=== PATIENT | female | born 1985 | race Caucasian/White ===

== ENCOUNTER 2024-04-20 14:34 | Emergency (ER) | payer MEDICARE, SELFPAY ==
[2024-04-20] VITALS (8 sets, daily range): BP systolic 110–151; BP diastolic 66–126; PULSE 58–76; RESP 18–20; TEMP 36; O2SAT 93–100; BMI 24.3
--- NOTE | 2024-04-20 15:29 | ED_ITS ---
HPI - General Adult General Chief complaint: Back Injury/Pain Stated complaint: mirella parklos syndrome - Time Seen by Provider: 04/20/24 15:12 History of Present Illness HPI narrative: This 38-year-old female comes in reporting nausea with vomiting and severe back pain. 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 She feels like she is having a flare-up. She lives in [place] and drove up here for a . She thinks that the long car ride it made her back pain worse. She appears to be miserable but does arrive with reassuring vital signs. Related Data Home Medications ?Medication ?Instructions ?Recorded ?Confirmed Ambien 04/20/24 Benadryl 04/20/24 Epi E-Z Pen 04/20/24 Zofran 04/20/24 acyclovir 04/20/24 cetirizine 04/20/24 cromolyn 04/20/24 famotidine 04/20/24 hydroxychloroquine 04/20/24 hydroxyzine HCl 04/20/24 lorazepam 04/20/24 oxycodone 04/20/24 propranolol 04/20/24 Allergies Allergy/AdvReac Type Severity Reaction Status Date / Time ibuprofen Allergy Intermediate Verified 04/20/24 14:54 Review of Systems Status of ROS: Reports: 10 or more systems reviewed and unremarkable except as noted in History and below Narrative: Constitutional: No fevers, no weight gain or loss. Eyes: No discharge. No vision changes. HENT: No congestion, no sore throat, no ear pain. Cardiovascular: No chest pain, no palpitations. Respiratory: No shortness of breath, no wheezes, no cough. Gastrointestinal: No abdominal pain, no vomiting, no diarrhea. Genitourinary: No dysuria, no hematuria. Musculoskeletal: She reports Tacos Danlos syndrome and has chronic pain. Skin: No rashes, no pruritis. Neurological: No dizziness, weakness, sensory change, speech change. Endo/Heme/Allergies: No bruising or bleeding. No polydipsia. Pysch: no suicidality, no anxiety, no insomnia. All other systems reviewed and are negative. Exam Narrative: Exam Narrative: Constitutional: Well-developed, well-nourished. HEENT: Normocephalic, atraumatic. Neck: Normal range of motion. Nontender. Supple. Heart: Regular. No murmurs. Normal rate. Intact distal pulses. Lungs: Clear to auscultation. No chest discomfort. No wheezes, rhonchi, or rales. Abdomen: Normal bowel sounds. Nontender. No rebound tenderness. Genitalia: Deferred. Back: No midline tenderness. Normal range of motion. Extremities: Normal range of motion. No injury. Skin: Intact. No rash. Warm. No erythema or pallor. Neurologic: No altered sensation. No weakness. Alert and oriented. Psychiatric: No suicidality. No anxiety or depression. No insomnia. Nursing notes and vitals signs are reviewed. Const: Vital Signs, click to edit/add: Vital Signs - 24 hr 04/20/24 14:47 04/20/24 15:58 04/20/24 16:03 Temperature 96.8 F L Pulse Rate 76 66 Pulse Rate [Pulse Oximeter] 74 Respiratory Rate 20 18 Blood Pressure [Le ft Upper Arm] 151/126 H Pulse Oximetry 100 100 100 Oxygen Delivery Me thod Room Air Course Vital Signs Vital signs: Initial Vital Signs Temperature 96.8 F L 04/20/24 14:47 Temperature Source Temporal Artery Scan 04/20/24 14:47 Pulse Rate 74 04/20/24 14:47 Respiratory Rate 20 04/20/24 14:47 Blood Pressure 151/126 H 04/20/24 14:47 Blood Pressure Mean 134 H 04/20/24 14:47 Blood Pressure Position Sitting 04/20/24 14:47 Pulse Oximetry 100 04/20/24 14:47 Oxygen Delivery Method Room Air 04/20/24 14:47 Vital Signs Temperature 96.8 F L 04/20/24 14:47 Pulse Rate 74 04/20/24 14:47 Respiratory Rate 20 04/20/24 14:47 Blood Pressure 151/126 H 04/20/24 14:47 Pulse Oximetry 100 04/20/24 14:47 Oxygen Delivery Method Room Air 04/20/24 14:47 Temperature 96.8 F L 04/20/24 14:47 Pulse Rate 66 04/20/24 16:03 Respiratory Rate 18 04/20/24 15:58 Blood Pressure 151/126 H 04/20/24 14:47 Pulse Oximetry 100 04/20/24 16:03 Oxygen Delivery Method Room Air 04/20/24 14:47 Medications Administered Medications: Discontinued Medications Generic Name Dose Route Start Last Admin Trade Name Zachary PRN Reason Stop Dose Admin Hydromorphone HCl 0.5 mg 04/20/24 15:25 04/20/24 15:49 Hydromorphone 0.5 Mg/0.5 Ml Inj IVP 04/20/24 15:26 0.5 mg ONCE ONE Administration Sodium Chloride 1,000 mls @ 1,000 mls/hr 04/20/24 15:30 04/20/24 15:50 0.9 % Sodium Chloride 1000 Ml IV 04/20/24 16:29 1,000 mls/hr .Q1H BONI Administration Ondansetron HCl 4 mg 04/20/24 15:25 04/20/24 15:49 Ondansetron 2 Mg/Ml Inj IVP 04/20/24 15:26 4 mg ONCE ONE Administration Medical Decision Making MDM Narrative Medical decision making narrative: This patient is complaining of pain with nausea and vomiting. She specifically asked for narcotic medications. She states that she normally takes oxycodone but because of the vomiting was unable to take it. I asked her if she might be in some withdrawal symptoms and she thought that she was not. IA initially stated that I had planned on giving her Toradol but she was begging for narcotics. I stated that we do not normally treat with narcotics in the SIRS a new diagnosis a such as a fracture or appendicitis or some other new finding. I did agree to give her 1 dose of Dilaudid. She received a L of normal saline intravenously along with Zofran. Patient continues to feel nausea symptoms and is asking for Reglan and Benadryl. She did not ask for further pain relief. She does appear yet to be uncomfortable but lab results have returned with reassuring findings. I did also order ketamine to be given slowly and she is very interested in giving this a try. Regardless of results the patient is showing reassuring lab and vital signs and is okay to be discharged when these treatments are completed. Lab Data Labs: Lab Results 04/20/24 Range/Units 15:45 WBC 13.56 H (4.50-11.00) K/uL RBC 5.27 H (4.00-5.20) m/uL Hgb 16.1 H (12.0-16.0) gm/dL Hct 47.6 (33.0-51.0) % MCV 90 (80-100) fL MCH 31 (26-34) pg MCHC 34 (32-36) gm/dL RDW Coeff of David 12.5 (11.5-15.5) % Plt Count 296 (140-440) K/uL Neut % (Auto) 85.0 H (42.0-72.0) % Lymph % (Auto) 11.9 L (20-44) % Rankin % (Auto) 2.6 (0.0-11.0) % Eos % (Auto) 0.2 (0.0-7.0) % Baso % (Auto) 0.2 (0.0-3.0) % Neut # (Auto) 11.50 H (1.7-7.0) K/uL Lymph # (Auto) 1.60 (0.90-2.90) K/uL Rankin # (Auto) 0.40 (0.00-0.90) K/UL Eos # (Auto) 0.00 (0.00-0.50) K/uL Baso # (Auto) 0.00 (0.00-0.30) K/uL Abs Immat Gran (auto) 0.00 (0.00-0.30) K/uL Imm/Tot Granulo (auto) 0.1 % Discharge Plan Discharge Clinical Impression: Chronic pain, Nausea & vomiting Patient Disposition: Home, Self-Care Condition: Stable Additional Instructions: Follow up with MD for ongoing management. Increase activity and diet as tolerated. Return if worsening. Prescriptions: No Action propranolol Ambien cromolyn Epi E-Z Pen famotidine acyclovir hydroxyzine HCl Benadryl oxycodone lorazepam Zofran hydroxychloroquine cetirizine Stand Alone Forms: MyHealth Info Instructions
[2024-04-20] MEDS: ONDANSETRON 2 MG/ML inj 4 MG IVP (15:49)
[2024-04-20] MEDS: HYDROmorphone 0.5 mg/0.5 ml inj IVP (15:49)
[2024-04-20] MEDS: 0.9 % SODIUM CHLORIDE 1000 ml 1,000 ML IV (15:50)
[2024-04-20 15:51] LABS: Basophils Percent Auto 0.2 % (0.0-3.0); Eosinophils Percent Auto 0.2 % (0.0-7.0); Hematocrit 47.6 % (33.0-51.0); Hemoglobin* 16.1 gm/dL (12.0-16.0); Immature Granulocytes Pct Auto 0.1 %; Lymphocytes Percent Auto 11.9 % (20-44); Mean Corpuscular HGB Conc 34 gm/dL (32-36); Mean Corpuscular Hemoglobin 31 pg (26-34); Mean Corpuscular Volume 90 fL (80-100); Monocytes Percent Auto 2.6 % (0.0-11.0); Platelet Count* 296 K/uL (140-440); RDW Coefficient of Variation % 12.5 % (11.5-15.5); Red Blood Count 5.27 m/uL (4.00-5.20); White Blood Count* 13.56 K/uL (4.50-11.00)
[2024-04-20 15:54] LABS: Slide Review Reflex No
[2024-04-20] MEDS: diphenhydrAMINE 50 MG/ML inj IVP (16:42)
[2024-04-20] MEDS: METOCLOPRAMIDE HCL 5 MG/ML INJ 10 MG IV (16:44)
[2024-04-20 17:03] LABS: Anion Gap 10 mEq/L (7-15); Blood Urea Nitrogen* 5 mg/dL (5-24); Calcium* 9.2 mg/dL (8.4-10.6); Carbon Dioxide* 20 mmol/L (20-32); Chloride* 110 mmol/L (96-114); Creatinine* 0.5 mg/dL (0.5-1.5); Est. Creatinine Clearance* 149.81; Estimated Glomerular Filt Rate 124 ml/min; Glucose* 107 mg/dL (60-115); Potassium* 3.1 mmol/L (3.6-5.1); Sodium* 140 mmol/L (135-149)
[2024-04-20] MEDS: KETAMINE HCL 20 MG in 0.9 % SODIUM CHLORIDE 100 ml 100 ML 300.6 MG IVPB (17:16)
== END 2024-04-20 18:28 | disposition home or self-care (01) ==
PROVIDERS: Emergency Provider Emergency Medicine Emergency Medical Services
DX: R11.2 Nausea with vomiting, unspecified (principal); G89.29 Other chronic pain
CPT/HCPCS: 36415; 80048; 85025; 94761; 96365; 96375; 99284; J1170; J1200; J2405; J2765; J3490; J7030